=== PATIENT | female | born 1965 | race Caucasian/White ===

== ENCOUNTER 2018-10-02 11:08 | Emergency (ER) | payer BC, OTHER ==
--- NOTE | 2018-10-02 12:32 | UC ---
Complaint Female HPI - HPI Summary HPI Summary: Pt had what she thinks was the stomach bug wih nausea and diarrhea. No diarrhea in the past 24 hours. She states she developed some mild low back pain but no urinary symptoms, but thought she might have a urinary tract infection. - History Of Current Complaint Chief Complaint: UCGeneralIllness Stated Complaint: URINARY COMPLAINT Time Seen by Provider: 10/02/18 11:43 Hx Obtained From: Patient Hx Last Menstrual Period: ABLATION ?: No Onset/Duration: Gradual Onset Timing: Constant Severity Initially: Moderate Severity Currently: Mild - Pt states the low back pain has not worsened Pain Intensity: 7 Character: Dull Aggravating Factor(s): Nothing - Unable to replicate the pain with movement Associated Signs And Symptoms: Positive: Back Pain. Negative: Fever, Vaginal Bleeding/Discharge, Vaginal Discharge, Nausea - Pt had nausea a few days ago and thought she was going to vomit but did not. 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 - Surgical History Surgical History: Yes Surgery Procedure, Year, and Place: . gallbladder. uterine ablation; tubal ligation - Family History Known Family History: Positive: Non-Contributory - Social History Alcohol Use: None Substance Use Type: None Smoking Status (MU): Never Smoked Tobacco - Immunization History Most Recent Tetanus Shot: pt states is up to date but unsure as to last date given Review of Systems All Other Systems Reviewed And Are Negative: Yes Gastrointestinal: Positive: Diarrhea - Diarrhea X4 but none in the last 24 hours. Denies abdominal pain., Nausea Is Patient Immunocompromised?: No Physical Exam Triage Information Reviewed: Yes Appearance: Well-Appearing, No Pain Distress, Well-Nourished Vital Signs: Initial Vital Signs Temp 97.1 F 10/02/18 11:46 Pulse 68 10/02/18 11:46 Resp 16 10/02/18 11:46 BP 124/83 10/02/18 11:46 Pulse Ox 99 10/02/18 11:46 Vital Signs Reviewed: Yes Eye Exam: Normal ENT Exam: Normal Neck exam: Normal Respiratory Exam: Normal Cardiovascular Exam: Normal Abdomen Description: Positive: No Organomegaly, Soft, Other: - Py has mild tenderness on palpation over suprapubic area. Negative: CVA Tenderness (R), CVA Tenderness (L), Distended, Guarding, Hepatomegaly, McBurney's Point Tenderness Musculoskeletal Exam: Normal Musculoskeletal: Positive: Strength Intact, ROM Intact - Walks normally without difficulty Neurological Exam: Normal Psychological Exam: Normal Complaint Female Dx - Course Course Of Treatment: Pt appears comfortable. Unable to replicate the low back pain which pt moves as though it is muscular, so with the urine positive for leukocytes, I am going to treat for a UTI with Macrobid and a definite follow up with her PCP if no improvement or go to the ER for any worsening symptoms. At this time, I don't believe this is a flare-up of her pancreatitis, but that may develop. Pt is agreeable with this plan of action. - Differential Dx/Diagnosis Differential Diagnosis/HQI/PQRI: Urinary Tract Infection Provider Diagnosis: UTI (urinary tract infection) Discharge - Sign-Out/Discharge Documenting (check all that apply): Patient Departure All imaging exams completed and their final reports reviewed: No Studies - Discharge Plan Condition: Fair Disposition: HOME Prescriptions: Nitrofurantoin Monohyd/M-Cryst [Macrobid 100 mg Capsule] 100 mg PO BID 5 Days # 10 cap Patient Education Materials: Urinary Tract Infection in Women (DC) Referrals: Susie Booker [Primary Care Provider] - Additional Instructions: Increase fluids. Follow up with your primary care doctor if no improvement in 4- 5 days. Definite recheck in the ER if increased pain, fever, vomiting, worsening of symptoms - Billing Disposition and Condition Condition: FAIR Disposition: Home - Attestation Statements Provider Attestation: Per institutional requirements, I have reviewed the chart, however, I was not consulted specifically or made aware of this patient by the midlevel provider. I did not personally evaluate, interact with , or disposition this patient.
== END 2018-10-02 12:30 | disposition home or self-care (01) ==
LOC: UCCORT 11:08
DX: N39.0 Urinary tract infection, site not specified (principal); Z88.0 Allergy status to penicillin; Z88.2 Allergy status to sulfonamides; Z88.8 Allergy status to other drugs, medicaments and biological substances
CPT/HCPCS: 81003; 87086; 99202; G0463